=== PATIENT | male | born 1945 | race Caucasian/White ===

== ENCOUNTER 2021-12-27 22:07 | Emergency (ER) | payer BC, MEDICAID ==
[~2021-12-27] VITALS: Ht 160 cm; Wt 91.0 kg
[~2021-12-27 22:07] MED LIST: AMLO5TAB4 PO; ASPI-1406 PO; OMEP20CA4; OMEP20CA4 PO
[2021-12-27 22:23] VITALS: BP 173/90
== END 2021-12-28 04:49 | disposition left against medical advice (07) ==
LOC: ER 22:07
DX: Z53.21 Procedure and treatment not carried out due to patient leaving prior to being seen by health care provider (principal)